=== PATIENT | male | born 1950 | race Caucasian/White ===

== ENCOUNTER → 2018-02-16 | Outpatient (CLI) | payer MEDICARE ==
[~2018-02-16] MED LIST: IOHEXOL 180 MG/ML 10 ML VIAL. ONE; LIDOCAINE 2% PF 2ML VIAL. ONE; NAPR500T8 PO; ZOLP5TAB PO; methylPREDNISolone ACETATE 40 MG/ML VIAL. ONE; methylPREDNISolone ACETATE 80 MG/ML VIAL. ONE
--- NOTE | 2018-02-16 14:43 | PAIN ---
DATE OF SERVICE: 02/16/2018 CHIEF COMPLAINT: Low back and left lower extremity pain. HISTORY OF PRESENT ILLNESS: The patient is a 68-year-old male who presents with history of pain at low back and left leg, it is about the year 1999 on and off. He had some treatment around 2004, which helped significantly, but the pain is returning now over the past few months, increased in the low back, across the low back bilaterally into the posterior gluteus, posterior lateral thigh, lateral anterior thigh on the left side. The patient reports it is aching and dull, stinging, constant, radiating, changes during the day, worse with activity, standing, walking. The patient plays golf fairly often and it is becoming more noticeable when he has been on his feet longer with some weakness and fatigability in the left leg. The patient reports it does not awaken him from sleep at night, he feels better with sitting or lying down. It does not affect his bowel or bladder control, but does affect his ability to walk with the fatigue in the left leg. The patient reports he has been taking naproxen, which helps. He has had some physical therapy in the past, but nothing recently, no other modalities or therapies at this time. The patient did have MRI scan of the lumbar spine showing multilevel degenerative disk change, broad-based disk protrusion at L4-L5 extending from the left paracentral position through the left lateral recess resulting in left lateral recess stenosis and left foraminal stenosis. The patient rates his disability rate from 0-10, 10 being the worst, is a 3 with family home responsibilities, 2 with sexual behavior and life support activities, and 1 with self-care, 7 with recreation and social activity and occupational activities. Again, the patient reports no loss of motor function, but significant fatigability in the left lower extremity with activity, especially walking and standing. PAST MEDICAL HISTORY: Significant for arthritis, previous injury with a pneumothorax treated with chest tube and previous tonsillectomy. Otherwise, the patient has been in good health. CURRENT MEDICATIONS: Include [id number] naproxen as well as iron supplement, Ambien for sleep. ALLERGIES: The patient has no known drug allergies. FAMILY HISTORY: Significant for no major medical problems or conditions he is aware of. SOCIAL HISTORY: The patient does not smoke, does not drink alcohol more than 1 beer a week. He is not using any illegal, illicit or recreational drugs. He is and lives with his spouse. Reports he is currently retired and lives locally in [place], [place]. REVIEW OF SYSTEMS: Positive for those items mentioned in history of present illness. All systems reviewed and otherwise negative. It is complete, full and well documented on the patient's chart. PHYSICAL EXAMINATION: VITAL SIGNS: The patient's blood pressure is 190/89, pulse is 69, respirations 18, temperature is 97.9 degrees Fahrenheit. Height is 6 feet, weight is 209 pounds. GENERAL: The patient is awake, alert, oriented, appropriate, very pleasant demeanor. HEENT: Head shows normocephalic, atraumatic. The patient wears eyeglasses. Extraocular movements intact and symmetrical. Oral cavity: Mucous membranes are moist and pink. Dentition is intact. NECK: Shows anterior throat supple without palpable lymphadenopathy noted. Swallow reflex is symmetrical. CHEST: Shows normal with inspection. Breath sounds clear to auscultation bilaterally. HEART: Shows S1, S2 clear. No murmurs auscultated. ABDOMEN: Soft, nontender, nondistended. No palpable organomegaly is noted. No rebound or guarding demonstrated. BACK: Shows spine grossly in the midline. Normal appearing thoracic kyphosis and lumbar lordotic curvature. Lumbar paraspinous musculature shows symmetrical on inspection; on palpation shows some mild tenderness throughout the upper, middle, lower distribution of paraspinous muscles but only diffusely and is symmetrical without evidence of atrophy, hypertrophy without trigger points. No tenderness over the spinous processes, sacrum or sacroiliac regions. The patient has good rotational motion of lumbar spine, both laterally as well as extension and flexion without difficulty or pain reported. EXTREMITIES: The patient's lower extremities show deep tendon reflexes at 2+ in the patella, 1+ tendo calcaneus tendons. Motor exam is strong with 5/5 dorsiflexion, extension, quadriceps and hamstring flexion equal. Peripheral pulses are 1+ posterior tibia. No peripheral edema is noted. No clubbing or cyanosis. Lower extremities are warm and dry to touch, equal in color and appearance. Straight leg raise noted to be negative bilaterally as is Gaenslen's and Suraj's maneuvers bilaterally. The patient is able to stand, stand on his toes without difficulty or loss of balance, walks with a normal appearing gait, does not appear to favor the right or left lower extremity, not using any assistive devices to ambulate. SKIN: Shows warm and dry, good turgor. No edema. No sores, rashes, bruising noted. IMPRESSION: 1. This is a 68-year-old male with approximate 5-month history of increasing pain in low back and left lower extremity in radicular fashion. 2. MRI scan of lumbar spine as noted. 3. Arthritis. PLAN: Options were discussed with the patient including conservative medical management, physical therapies and interventional techniques. He would like to pursue interventional techniques. We discussed a lumbar epidural steroid injection using description as well as anatomical models to describe the procedure. Risks were then discussed including, but not limited to bleeding, infection, possibility of epidural hematoma, subsequent neurologic compromise, dural puncture headache, spinal cord and/or nerve damage, side effects of steroid medication and poor results regarding pain control. The patient understands and wished to proceed. The patient will return to clinic in approximately 2 weeks for followup. He was counseled to return appointment, activity level and side effects to be aware of. DIAGNOSIS: Lumbar radiculopathy with lumbar degenerative disk disease and lumbar herniated disk. PROCEDURES: Lumbar epidural steroid injection, translaminar approach at L4-L5 level using C-arm fluoroscopic guidance under sterile prep and drape using local anesthetic. MEDICATION INJECTED: A total of 120 mg Depo-Medrol plus 10 mL of preservative-free normal saline and 2 mL of Isovue for contrast. CONDITION AT DISCHARGE: Stable. The patient tolerated procedure well, had no complications. SIMON MAY MD DR: CARITO/mulu JOB#: [id number] / [id number] EDER May MD
== END | disposition home or self-care (01) ==
LOC: PNCL 07:47
PROVIDERS: ATTEND Anesthesiology
DX: M51.16 Intervertebral disc disorders with radiculopathy, lumbar region (principal); M19.90 Unspecified osteoarthritis, unspecified site; Z98.890 Other specified postprocedural states; Z79.899 Other long term (current) drug therapy
CPT/HCPCS: 62323; J1030; J1040; J2001; Q9965

== ENCOUNTER → 2018-03-02 | Outpatient (CLI) | payer MEDICARE ==
--- NOTE | 2018-03-02 11:19 | PAIN ---
DATE OF SERVICE: 03/02/2018 DIAGNOSES: Lumbar radiculopathy with lumbar degenerative disk disease and lumbar herniated disk. The patient is a 68-year-old male who returns for followup status post lumbar epidural steroid injection x 1. The patient reports about 80-90% improvement in his left leg and low back, but still some pain in the low back on the right side. The patient reports it is a 3 on a scale of 10 at its worst, 2 on average, 2 at its least, and is a 2 today. The patient reports it as aching and sharp, radiating to the lower extremities, mostly on the left side, but more noticeable on the right side in the low back. The patient reports he has been increasing his activities, distance walking, doing household activities, playing golf, also sleeping better. It does not awaken him from sleep any longer. The patient reports no new motor or sensory deficits, no new bowel or bladder incontinence or other complaints. PHYSICAL EXAMINATION: VITAL SIGNS: Blood pressure 130/80, pulse 64, respirations 16, temperature 97.8 degrees Fahrenheit, weight is 209 pounds. GENERAL: The patient is alert, oriented, appropriate, very pleasant demeanor. HEENT: Head shows normocephalic, atraumatic. Extraocular movements are intact and symmetrical. Oral cavity: Mucous membranes are moist and pink. Dentition is intact. NECK: Shows anterior throat supple without palpable lymphadenopathy noted. Swallow reflex symmetrical. CHEST: Shows normal on inspection. Breath sounds are clear to auscultation bilaterally. HEART: S1, S2 clear. No murmurs auscultated. ABDOMEN: Soft, nontender, nondistended. No palpable organomegaly is noted. No rebound or guarding demonstrated. BACK: Shows spine grossly in the midline, normal appearing thoracic kyphosis and lumbar lordotic curvatures. Lumbar paraspinal musculature shows symmetrical on inspection, on palpation shows some mild tenderness only diffusely in the low lumbar distribution without radiation. The patient has good rotational motion both laterally as well as extension and flexion without difficulty. EXTREMITIES: Lower extremities show deep tendon reflexes at 2+ in the patellar, 1+ in tendo-calcaneus tendons are equal. Motor exam is strong with 5/5 dorsiflexion and extension, quadriceps and hamstring flexion are symmetrical. Peripheral pulses are 1+ posterior tibial. No peripheral edema is noted bilaterally. Options were discussed with the patient. The patient's old chart was reviewed as his current medication regimen updated. Current review of systems is updated today as well. We will proceed with a second lumbar epidural steroid injection with fluoroscopic guidance. Risks were again discussed including, but not limited to bleeding, infection, possibility of epidural hematoma and subsequent neurological compromise, dural puncture headache, spinal cord and/or nerve damage, side effects of steroid medication, and poor results regarding pain control. The patient understands and wished to proceed. The patient will return to clinic in approximately 2 weeks for follow up. He was counseled as to return appointment, activity level and side effects to be aware of. DIAGNOSES: Lumbar radiculopathy with lumbar degenerative disk disease, and lumbar herniated disk. PROCEDURE: Lumbar epidural steroid injection, translaminar approach, at L4-L5 level using C-arm fluoroscopic guidance under sterile prep and drape using local anesthetic. MEDICATION INJECTED: A total of 120 mg Depo-Medrol plus 10 mL of preservative-free normal saline and 2 mL of Isovue for contrast. CONDITION AT DISCHARGE: Stable. The patient tolerated the procedure well and had no complications. SIMON MAY MD DR: CARITO/mulu JOB#: [id number] / [id number]
== END | disposition home or self-care (01) ==
LOC: PNCL 07:53
PROVIDERS: ATTEND Anesthesiology
DX: M51.16 Intervertebral disc disorders with radiculopathy, lumbar region (principal)
CPT/HCPCS: 62323; J1030; J1040; J2001; Q9965

== ENCOUNTER → 2018-03-23 | Outpatient (CLI) | payer MEDICARE ==
[~2018-03-23] MED LIST changes: +LIDOCAINE 1% PF 2 ML VIAL. ONE; -LIDOCAINE 2% PF 2ML VIAL. ONE
--- NOTE | 2018-03-23 19:00 | PAIN ---
DATE OF SERVICE: 03/23/2018 PROGRESS NOTE FOR PAIN CLINIC DIAGNOSES: Lumbar radiculopathy with lumbar degenerative disk disease and lumbar herniated disk. HISTORY OF PRESENT ILLNESS: The patient is a 68-year-old male who returns for followup status post lumbar epidural steroid injection x 2. The patient reports initially about 89% improvement, but after the second injection, was not a significant improvement above that. The patient reports the pain is still in the low back and more on the right side than the left at this time. Aching, radiating and shooting into the lower extremities. The patient reports lower extremity pain both in the left leg and the right leg, but is more noticeable now on the right side. The patient reports pain is a 6 on a scale of 10 at its worst, 4 on average, 2 at its least and is a 4 today. The patient reports it is aching and constant, becoming more radiating, worse with walking, standing, changing positions. The patient played golf yesterday, which seemed to exacerbate the pain across the back. The patient reports his back is sore from that, better with sitting or lying down. It does not awaken him from sleep at night. The patient reports no new motor or sensory deficits, no new bowel or bladder incontinence or other complaints. PHYSICAL EXAMINATION: VITAL SIGNS: The patient's blood pressure is 117/77, pulse 67, respirations 18, temperature 97.8 degrees Fahrenheit. Height 6 feet, weight is 209 pounds. GENERAL: The patient is awake, alert, oriented, appropriate, very pleasant demeanor. HEENT: Head is normocephalic, atraumatic. Extraocular muscles are intact and symmetrical. Oral cavity: Mucous membranes moist and pink. Dentition is intact. NECK: Shows anterior throat supple without palpable lymphadenopathy noted. Swallow reflex symmetrical. CHEST: Shows normal on inspection. Breath sounds clear to auscultation bilaterally. HEART: Shows S1, S2 clear. No murmurs auscultated. ABDOMEN: Soft, nontender, nondistended. No palpable organomegaly is noted. No rebound or guarding demonstrated. BACK: Shows spine grossly in the midline. Normal appearing thoracic kyphosis and lumbar lordotic curvature. Lumbar paraspinous muscle shows symmetrical on inspection, on palpation shows some mild tenderness to moderate tenderness in the middle and lower distribution of paraspinous musculature bilaterally, somewhat more on the right than the left at this time. No difficulty with rotational motion was performed greater than 10 degrees right and left as well as extension greater than 10 degrees, forward flexion 45 degrees without difficulty. EXTREMITIES: The patient's lower extremities show deep tendon reflexes 2+ in the patellar, 1+ tendo calcaneus tendons are equal. Motor exam is strong with 5/5 dorsiflexion, extension, quadriceps and hamstring flexion. Peripheral pulses are 1+ posterior tibia. No peripheral edema is noted. Options were discussed with the patient. The patient's old chart was reviewed, as his current medication regimen updated. Current review of systems updated today as well. We will proceed with a third in the series of lumbar epidural steroid injection today with fluoroscopic guidance. Risks were again discussed including, but not limited to bleeding, infection, possibility of epidural hematoma, subsequent neurological compromise, dural puncture headache, spinal cord and/or nerve damage, side effects of steroid medication and poor results regarding pain control. The patient understands and wished to proceed. The patient to return to clinic in approximately 2 weeks for followup, was counseled on return appointment, activity level and side effects to be aware of. DIAGNOSES: Lumbar radiculopathy with lumbar degenerative disk disease and lumbar herniated disk. PROCEDURE: Lumbar epidural steroid injection, translaminar approach at L4-L5 level using C-arm fluoroscopic guidance under sterile prep and drape using local anesthetic. MEDICATION INJECTED: A total of 120 mg Depo-Medrol plus 10 mL of preservative-free normal saline and 2 mL of Isovue for contrast. CONDITION AT DISCHARGE: Stable. The patient tolerated the procedure well, had no complications. SIMON MYA MD DR: CARITO/mulu JOB#: [id number] / [id number]
== END | disposition home or self-care (01) ==
LOC: PNCL 07:58
PROVIDERS: ATTEND Anesthesiology
DX: M51.16 Intervertebral disc disorders with radiculopathy, lumbar region (principal)
CPT/HCPCS: 62323; J1030; J1040; Q9965

== ENCOUNTER → 2019-01-17 | Outpatient (CLI) | payer MEDICARE ==
[~2019-01-17] MED LIST changes: -LIDOCAINE 1% PF 2 ML VIAL. ONE; +MELA3TAB2 PO
--- NOTE | 2019-01-18 00:38 | PAIN ---
DATE OF SERVICE: 01/17/2019 PROGRESS NOTE FOR PAIN CLINIC DIAGNOSES: Lumbar radiculopathy with lumbar degenerative disk disease and lumbar herniated disk. HISTORY OF PRESENT ILLNESS: The patient is a 68-year-old male who returns for followup status post lumbar epidural steroid injection x 1. The patient reports about 40% improvement since last injection, which he is continuing. The pain in the back is now essentially relieved, but he still has pain in the right hip, lateral anterior thigh. The patient reports it is aching, sharp, and shooting at times, radiating with walking and standing, worse with changing positions, better with sitting or lying down, does not awaken him from sleep at night. The patient reports he is increasing his activity with greater distance walking and doing recreational activities with greater ease and comfort. The patient reports no new motor or sensory deficits, no new bowel or bladder incontinence or other complaints. Rates his pain as 6 on a scale of 10 at its worst over the past week, 5 on average, 2 at its least, and is a 2 today. PHYSICAL EXAMINATION: VITAL SIGNS: The patient's blood pressure is 130/77, pulse 77, respirations 18, temperature 97.5 degrees Fahrenheit, and weight 205 pounds. GENERAL: The patient is awake, alert, oriented, appropriate, and very pleasant demeanor. HEENT: Shows normocephalic, atraumatic. Extraocular movements are intact and symmetrical. Oral cavity: Mucous membranes moist and pink. Dentition is intact. NECK: Shows anterior throat supple without palpable lymphadenopathy noted. Swallow reflex is symmetrical. CHEST: Shows normal on inspection. Breath sounds are clear to auscultation bilaterally. HEART: Shows S1, S2 clear. No murmurs auscultated. ABDOMEN: Soft, nontender, and nondistended. No palpable organomegaly is noted. No rebound or guarding demonstrated. BACK: Shows spine grossly in the midline. Normal appearing thoracic kyphosis and lumbar lordotic curvature. Lumbar paraspinous muscle shows symmetrical on inspection, with palpation shows some moderate tenderness diffusely, but only diffusely bilaterally without radiation. The patient has good rotational motion of lumbar spine, both laterally as well as extension and flexion without significant difficulty. EXTREMITIES: The patient's lower extremities show deep tendon reflexes 2+ in the patellar, 1+ tendo-calcaneus tendons. Motor exam is strong with 5/5 dorsiflexion, extension, quadriceps and hamstring flexion equal. Peripheral pulses are 1+ posterior tibial. No peripheral edema is noted. Options were discussed with the patient. The patient's old chart was reviewed as his current medication regimen updated. Current review of systems updated today as well. We will proceed with a second in the series of lumbar epidural steroid injection today with fluoroscopic guidance. Risks were again discussed including, but not limited to bleeding, infection, possibility of epidural hematoma and subsequent neurologic compromise, dural puncture, headaches, spinal cord and/or nerve damage, side effects of steroid medication and poor results regarding pain control. The patient understands and wished to proceed. The patient will return to the clinic in approximately 2 weeks for followup. He was counseled as to return appointment, activity level, and side effects to be aware of. DIAGNOSES: Lumbar radiculopathy with lumbar degenerative disk disease and lumbar herniated disk. PROCEDURE: Lumbar epidural steroid injection, translaminar approach at L4-L5 level using C-arm fluoroscopic guidance under sterile prep and drape using local anesthetic. MEDICATION INJECTED: A total of 120 mg Depo-Medrol plus 10 mL of preservative-free normal saline and 2 mL of contrast. CONDITION AT DISCHARGE: Stable. The patient tolerated the procedure well, had no complications. SIMON MAY MD DR: CARITO/mulu JOB#: [id number] / [id number]
== END ==
LOC: PNCL 13:56
PROVIDERS: ATTEND Anesthesiology
DX: M51.16 Intervertebral disc disorders with radiculopathy, lumbar region (principal)
CPT/HCPCS: 62323; J1030; J1040; Q9965

== ENCOUNTER → 2019-02-21 | Outpatient (CLI) | payer MEDICARE ==
[~2019-02-21] MED LIST changes: +BUPIVACAINE MPF 0.25% 10 ML VIAL. ONE; -MELA3TAB2 PO; +MELA3TAB56 PO; -methylPREDNISolone ACETATE 80 MG/ML VIAL. ONE
--- NOTE | 2019-02-22 01:42 | PAIN ---
DATE OF SERVICE: 02/21/2019 PROGRESS NOTE FOR PAIN CLINIC DIAGNOSES: 1. Lumbar radiculopathy with lumbar degenerative disk disease and lumbar herniated disk. 2. Myofascial pain. HISTORY OF PRESENT ILLNESS: This is a 69-year-old male who returns for followup status post lumbar epidural steroid injection x 2. The patient reports his first injection gave about 40% improvement. The last one had no real significant improvement and his pain is mainly just in the right side now on the right posterior gluteus and lateral hip and thigh. The patient reports it is worse with activity, standing, walking, changing positions, worse with abducting his leg to the right away from midline. The patient reports it is aching, sharp, dull, shooting, radiating, rates it as a 8 on a scale of 10 at its worst in the past week, 6 on average and a 3 this week and is a 6 today. The patient reports no loss of motor function, no new bowel or bladder incontinence or other complaints, worse with activity. It does not awaken him from sleep at night, better with sitting or lying down. PHYSICAL EXAMINATION: VITAL SIGNS: The patient's blood pressure is 145/84, pulse 66, respirations 18, temperature 98.1 degrees Fahrenheit, weight is 204 pounds. GENERAL: The patient is awake, alert, oriented, appropriate, very pleasant demeanor. HEENT: Head shows normocephalic, atraumatic. Extraocular movements are intact and symmetrical. Oral cavity: Mucous membranes moist and pink. Dentition is intact. NECK: Shows anterior throat supple without palpable lymphadenopathy noted. Swallow reflex symmetrical. CHEST: Shows normal on inspection. Breath sounds clear to auscultation bilaterally. HEART: Shows S1, S2 clear. No murmurs auscultated. ABDOMEN: Soft, nontender, nondistended. BACK: Shows spine grossly in the midline. Normal appearing thoracic kyphosis and lumbar lordotic curvature. Lumbar paraspinous muscle shows symmetrical on inspection with palpation with some moderate tenderness diffusely bilaterally, but only diffusely without radiation. The patient has good rotational motion of lumbar spine, both laterally as well as extension and flexion without significant difficulty. EXTREMITIES: The patient's lower extremities show deep tendon reflexes 2+ in the patellar, 1+ tendo-calcaneus tendons. Motor exam is strong with 5/5 dorsiflexion, extension, quadriceps and hamstring flexion bilaterally. The patient shows some significant tenderness over the superior lateral aspect of the right gluteus with deep palpation without specific radiation, but very firm rope-like musculature consistent with trigger point areas of musculature on the right side only. Left side is nontender without any findings of rope-like musculature or radiation. Options were discussed with the patient. The patient's old chart was reviewed as his current medication regimen updated. Current review of systems updated today as well. We will proceed with a trigger point injection of the right superior lateral gluteus. Risks were discussed including but not limited to bleeding, infection, possibility of intravascular injection sequelae, spread of local anesthetic and numbness, side effects of steroid medication, exposure to fluoroscopy and poor results regarding pain control. The patient understands and wished to proceed. The patient will return to clinic in approximately 2 weeks for followup. He was counseled on return appointment, activity level and side effects to be aware of. DIAGNOSIS: Myofascial pain. PROCEDURE: Trigger point injection to right superior lateral gluteus under sterile prep and drape using local anesthetic. MEDICATION INJECTED: A total of 4 mL of 0.25% bupivacaine and 40 mg total Depo-Medrol after negative aspiration. CONDITION AT DISCHARGE: Stable. The patient tolerated the procedure well and had no complications. SIMON MAY MD DR: CARITO/mulu JOB#: [id number] / [id number]
== END ==
LOC: PNCL 08:13
PROVIDERS: ATTEND Anesthesiology
DX: M79.18 Myalgia, other site (principal); M51.16 Intervertebral disc disorders with radiculopathy, lumbar region
CPT/HCPCS: 20552; 77002; J1030; J3490; Q9965

== ENCOUNTER → 2019-03-27 | Outpatient (CLI) | payer MEDICARE ==
[~2019-03-27] MED LIST changes: -BUPIVACAINE MPF 0.25% 10 ML VIAL. ONE; +methylPREDNISolone ACETATE 80 MG/ML VIAL. ONE
--- NOTE | 2019-03-27 18:54 | PAIN ---
DATE OF SERVICE: 03/27/2019 PROGRESS NOTE FOR PAIN CLINIC DIAGNOSES: Lumbar radiculopathy with lumbar degenerative disk disease and lumbar herniated disk. HISTORY OF PRESENT ILLNESS: The patient is a 69-year-old male who returns for followup status post lumbar epidural steroid injection x 2. The patient reports he did well initially, but the pain is returning now, about 40% improvement. We tried triggerpoint injection on him last time in the right gluteus, which was not significantly effective as well. The patient reports still some pain has been radiating further down the leg now on the right side, posterior gluteus, lateral thigh, posterior and anterior thigh, anterior medial thigh with extended standing is most noticeable. The patient reports when he is standing for prolonged periods, the pain is much worse in the back and the right leg, better with playing golf. He has no difficulty with twisting the low back, spine extension and flexion without significant increase in pain. The patient reports it is aching and shooting in the low back and right leg, stabbing, radiating rated as a 9 on a scale of 10 at its worst, 7 on average, 5 at its least and is a 5 today. The patient reports no new motor or sensory deficits, no new bowel or bladder incontinence or other complaints. PHYSICAL EXAMINATION: VITAL SIGNS: The patient's blood pressure 134/81, pulse 76, respirations 16, temperature 97.8 degrees Fahrenheit, weight is 206 pounds. GENERAL: The patient is awake, alert, oriented, appropriate, very pleasant demeanor. HEENT: Shows normocephalic, atraumatic. Extraocular movements are intact and symmetrical. Oral cavity, mucous membranes are moist and pink. Dentition is intact. NECK: Shows anterior throat supple without palpable lymphadenopathy noted. Swallow reflex symmetrical. CHEST: Shows normal on inspection. Breath sounds clear to auscultation bilaterally. HEART: Shows S1, S2 clear. No murmurs auscultated. ABDOMEN: Soft, nontender, nondistended. No palpable organomegaly is noted. No rebound or guarding demonstrated. BACK: Shows spine grossly in the midline. Normal appearing thoracic kyphosis, some minor flattening of lumbar lordotic curvature. Lumbar paraspinous muscle shows symmetrical on inspection, with palpation shows some czuk-to-uqfnvwbe tenderness in the low lumbar distribution only, more on the right than the left, but symmetrical without evidence of atrophy, hypertrophy, no trigger points, no radiation. The patient has good rotational motion of lumbar spine without difficulty, both laterally greater than 10 degrees right and left as well as extension greater than 10 degrees, forward flexion 45 degrees without increased pain in any rotation. EXTREMITIES: Lower extremities show deep tendon reflexes 2+ in the patellar, 1+ tendo-calcaneus tendons. Motor exam is strong with 5/5 dorsiflexion, extension, quadriceps and hamstring flexion symmetrical. Peripheral pulses are 1+ posterior tibia. No peripheral edema is noted. Options were discussed with the patient. The patient's old chart was reviewed as his current medication regimen updated. Current review of systems updated today as well. We will proceed with a third in a series of lumbar epidural steroid injection today with fluoroscopic guidance. Risks were again discussed including, but not limited to bleeding, infection, possibility of epidural hematoma, subsequent neurological compromise, dural puncture, headaches, spinal cord and/or nerve damage, side effects of steroid medication and poor results regarding pain control. The patient understands and wished to proceed. The patient will return to clinic in approximately 2 weeks for followup. He was counseled on return appointment, activity level and side effects to be aware of. DIAGNOSIS: Lumbar radiculopathy with lumbar degenerative disk disease with lumbar herniated disk. PROCEDURE: Lumbar epidural steroid injection, translaminar approach L4-L5 level using C-arm fluoroscopic guidance under sterile prep and drape using local anesthetic. MEDICATION INJECTED: A total of 120 mg Depo-Medrol plus 10 mL of preservative-free normal saline and 2 mL of contrast. CONDITION AT DISCHARGE: Stable. The patient tolerated the procedure well, had no complications. SIMON MAY MD DR: CARITO/mulu JOB#: [id number] / [id number]
== END ==
LOC: PNCL 14:37
PROVIDERS: ATTEND Anesthesiology
DX: M51.16 Intervertebral disc disorders with radiculopathy, lumbar region (principal)
CPT/HCPCS: 62323; J1030; J1040; Q9965

== ENCOUNTER → 2019-04-03 | Outpatient (CLI) | payer MEDICARE ==
[~2019-04-03] MED LIST changes: -IOHEXOL 180 MG/ML 10 ML VIAL. ONE; -methylPREDNISolone ACETATE 40 MG/ML VIAL. ONE; -methylPREDNISolone ACETATE 80 MG/ML VIAL. ONE
--- NOTE | 2019-04-03 16:37 | RAD ---
MRI Lumbar Spine without contrast History: Right radiculopathy Technique: Multiplanar, multi sequential noncontrast MR imaging was performed of the lumbar spine. Comparison: March 22, 2006 Findings: Lumbar vertebral body stature is mostly maintained other than multilevel Schmorl's nodes. There is minimal posterior subluxation of L5 relative S1, negligible anterior spondylolisthesis at L4-5, and very mild grade 1 anterior spondylolisthesis at L2-3. Conus terminates at T12-L1. There is no significant marrow edema. There is again fairly advanced L5-S1 degenerative disc disease, [id number] degenerative disc disease at L2-3, to a lesser degree L3-4 and L4-5. L1-L2: There is negligible disc osteophyte complex. There is minimal buckling of the ligamentum flavum. Spinal canal and neural foramina are adequate. L2-L3: There is mild buckling of the ligamentum flavum and facet degenerative change, minimal fluid in the facet articulations greater on the right. Neural foramina are adequate. Spinal canal is overall adequate. L3-L4: There is mild buckling of the ligamentum flavum and facet degenerative change. Spinal canal and neural foramina are adequate. There is very mild narrowing of the far right lateral recess from posteriorly. L4-L5: There is mild prominence of posterior epidural fat centrally. There is mild to moderate buckling of the ligamentum flavum and mild facet degenerative change. There is some fluid in the facet articulations bilaterally. There is minimal disc osteophyte complex, somewhat more eccentric to the inferior right neural foramen with associated small superimposed protrusion. There is [id number]-sc-[id number] narrowing of the far lateral recesses bilaterally. There is also mild narrowing of the central canal mostly from posterior epidural lipomatosis. There is mild narrowing of the inferior right neural foramen in part by shallow protrusion, left neural foramen overall adequate. L5-S1: There is minimal disc osteophyte complex and bulge superimposed on the posteriorly subluxed L5 vertebral body margin. There is mild narrowing of the far left lateral recess. There is mild narrowing of the left neural foramen, right neural foramen adequate. Impression: 1. There is dqcs-pq-fxwvranl narrowing of the far lateral recesses bilaterally at L4-5, mild left lateral recess stenosis L5-S1 as described. 2. There is multilevel mild abnormal alignment as stated, multilevel facet degenerative change. 3. There is multilevel degenerative disc disease greatest at L5-S1. 4. There is mild narrowing of the right L4-5 and left L5-S1 neural foramina. Electronically signed by: Massimo Baez MD (04/03/2019 4:34 PM) [email or web address]
== END ==
LOC: MRI 14:14
PROVIDERS: ATTEND Anesthesiology
DX: M51.16 Intervertebral disc disorders with radiculopathy, lumbar region (principal)
CPT/HCPCS: 72148

== ENCOUNTER → 2019-05-16 | Outpatient (CLI) | payer MEDICARE ==
[~2019-05-16] MED LIST changes: +BUPIVACAINE MPF 0.25% 10 ML VIAL. ONE; +IOHEXOL 180 MG/ML 10 ML VIAL. ONE; +methylPREDNISolone ACETATE 40 MG/ML VIAL. ONE
--- NOTE | 2019-05-17 03:39 | PAIN ---
DATE OF SERVICE: 05/16/2019 PROGRESS NOTE FOR PAIN CLINIC DIAGNOSES: 1. Lumbar radiculopathy with lumbar degenerative disk disease and lumbar herniated disk. 2. Myofascial pain. HISTORY OF PRESENT ILLNESS: The patient is a 69-year-old male who returns for followup status post lumbar epidural steroid injections x 3, most recently on 03/27/2019. The patient did very well, reports his back is doing quite a bit better, about 80% improvement. He has some pain in the right lateral and posterior hip, which has been keeping him from sleeping at night and difficulty with activity. The patient remains very active. He is referring basketball games frequently on the weekends as well as still playing golf and also playing pickleball with a fairly good ease and comfort, but the pain in the hip is beginning to become more noticeable. The patient reports he has been very active, increasing distance walking, doing work activities, household activities, referring activities again golf and pickleball with good tolerance, but the pain is more noticeable with the referring activities. The patient reports he has difficulty trying to run. He has not been doing this lately because of the pain. No new motor or sensory deficits; however, no new bowel or bladder incontinence. The patient reports the pain is a 9 on a scale of 10 at its worst over the past week, 6 on average, 3 at its least and is a 3 today, pressure, aching, sharp, dull, burning, stabbing, radiating, becoming severe in the right hip, again worse with activity. PHYSICAL EXAMINATION: VITAL SIGNS: The patient's blood pressure 126/73, pulse 77, respirations 18, temperature 98.3 degrees Fahrenheit, height 6 feet, weight is 206 pounds. GENERAL: The patient is awake, alert, oriented, appropriate, very pleasant demeanor. HEENT: Shows normocephalic, atraumatic. Extraocular movements are intact and symmetrical. Oral cavity: Mucous membranes moist and pink. Dentition is intact. NECK: Shows anterior throat supple without palpable lymphadenopathy noted. Swallow reflex symmetrical. CHEST: Shows normal on inspection. Breath sounds are clear bilaterally. HEART: Shows S1, S2 clear. No murmurs auscultated. ABDOMEN: Soft, nontender, nondistended. BACK: Shows spine grossly in the midline. Normal appearing thoracic kyphosis and lumbar lordotic curvature. Lumbar paraspinous muscle shows symmetrical on inspection, some very mild tenderness in the right distribution in the low lumbar paraspinous musculature that is without radiation. The patient has good rotational motion of lumbar spine, both laterally as well as extension and flexion without significant difficulty. The patient's right posterior gluteus and lateral gluteus shows some significant tenderness and very firm rope-like musculature on the superior lateral aspect of the gluteus, which is very tender with palpation without specific radiation. The patient has good rotational motion of the hip as well as abduction and adduction more noticeable with abduction on the right side with pain just above the trochanter and into the superior lateral gluteus as well. Left side is nontender. EXTREMITIES: Lower extremities show deep tendon reflexes 2+ in the patellar and tendo calcaneus tendons are 1+. Motor exam is strong with 5/5 dorsiflexion, extension and symmetrical. Peripheral pulses are 1+. No peripheral edema is noted. Options were discussed with the patient. The patient's old chart was reviewed as his current medication regimen updated. Current review of systems updated today as well. We will proceed with a trigger point injection of the right superolateral gluteus as identified. Risks were discussed including but not limited to bleeding, infection, possibility of intravascular injection sequelae, spread of local anesthetic and numbness, side effects of steroid medication, exposure to fluoroscopy and poor results regarding pain control. The patient understands and wished to proceed. The patient will return to clinic in approximately 2 weeks for followup. She was counseled on return appointment, activity level, and side effects to be aware of. DIAGNOSIS: Myofascial pain. PROCEDURE: Trigger point injection, right superolateral gluteus under sterile prep and drape using local anesthetic. MEDICATION INJECTED: A total of 5 mL of 0.25% bupivacaine and 40 mg total Depo-Medrol and 1 mL of contrast. CONDITION AT DISCHARGE: Stable. The patient tolerated the procedure well, had no complications. SIMON MYA MD DR: CARITO/mulu JOB#: [id number] / [id number]
== END | disposition home or self-care (01) ==
LOC: PNCL 11:49
PROVIDERS: ATTEND Anesthesiology
DX: M79.18 Myalgia, other site (principal); M51.16 Intervertebral disc disorders with radiculopathy, lumbar region; Z98.890 Other specified postprocedural states
CPT/HCPCS: 20552; 77002; J1030; J3490; Q9965

== ENCOUNTER → 2019-06-06 | Outpatient (CLI) | payer MEDICARE ==
[~2019-06-06] MED LIST changes: -BUPIVACAINE MPF 0.25% 10 ML VIAL. ONE; -IOHEXOL 180 MG/ML 10 ML VIAL. ONE; -methylPREDNISolone ACETATE 40 MG/ML VIAL. ONE
--- NOTE | 2019-06-06 12:29 | PAIN ---
DATE OF SERVICE: 06/06/2019 PROGRESS NOTE FOR PAIN CLINIC DIAGNOSES: Lumbar radiculopathy with lumbar degenerative disk disease and lumbar herniated disk. HISTORY OF PRESENT ILLNESS: The patient is a 69-year-old male who returns for followup status post lumbar epidural steroid injections x 3 since December of this year. Also, trigger point injection on his last visit and also in February. The patient reports the pain is actually worse in the right hip radiating in the right side lateral aspect of the thigh and superior aspect of the gluteus as well as some pain in the back, but the pain in the back is very minimal. The patient reports that his leg, mostly in the posterior gluteus, posterior lateral thigh, anterior thigh and occasionally with aching, sharp, dull pain, burning, radiating, becoming more constant and severe with walking, standing, especially with trying to exercise or run. The patient reports the pain is a 10 on a scale of 10 at its worst over the past week, 7 on average, 3 at its least and is a 7 today. The patient reports it awakens him from sleep about every 6 hours, worse with walking, trying to do household activities as well as work activities. 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 The patient reports no new motor or sensory deficits, no new bowel or bladder incontinence. PHYSICAL EXAMINATION: VITAL SIGNS: The patient's blood pressure 120/78, pulse 72, respirations 18, temperature 97.8 degrees Fahrenheit, height 6 feet, weight is 207 pounds. GENERAL: The patient is awake, alert, oriented, appropriate, very pleasant demeanor. HEENT: Head shows normocephalic, atraumatic. Extraocular movements are intact and symmetrical. Oral cavity: Mucous membranes moist and pink. Dentition is intact. NECK: Shows anterior throat is supple without palpable lymphadenopathy noted. Swallow reflex symmetrical. CHEST: Shows normal on inspection. Breath sounds clear to auscultation bilaterally. HEART: Shows S1, S2 clear. No murmurs auscultated. ABDOMEN: Soft, nontender, nondistended. No palpable organomegaly is noted. No rebound or guarding demonstrated. BACK: Shows spine grossly in the midline. Normal-appearing thoracic kyphosis and lumbar lordotic curvature. The patient's lumbar paraspinous muscle shows symmetrical on inspection, on palpation shows some moderate tenderness diffusely, but only diffusely without significant radiation. EXTREMITIES: The patient's lower extremities show deep tendon reflexes at 2+ in the patellar, 1+ tendo-calcaneus tendons. Motor exam is strong with 5/5 dorsiflexion, extension, quadriceps and hamstring flexion and symmetrical and equal as well bilaterally. Peripheral pulses are 1+ posterior tibia. No peripheral edema is noted bilaterally. PLAN: Options were discussed with the patient. The patient's old chart was reviewed as his current medication regimen updated. Current review of systems updated today as well. We will proceed with holding injections at this time. We did discuss a potential right-sided L4-L5 transforaminal injection. The patient would like to try some alternative therapies currently. We recommended to different chiropractors for him to see if he is interested in some chiropractic treatment for the hip and leg. If not significantly improved, we did discuss potential lumbar transforaminal injection after that time. He will try the chiropractic route first. The patient was encouraged to maintain stretching and strengthening exercises on his own as well. Also, walking as tolerated and exercising as tolerated. The patient will follow up after chiropractic treatment and we will proceed at that time depending on his results. SIMON MAY MD DR: CARITO/mulu JOB#: [id number] / [id number]
== END | disposition home or self-care (01) ==
LOC: PNCL 07:30
PROVIDERS: ATTEND Anesthesiology
DX: M51.16 Intervertebral disc disorders with radiculopathy, lumbar region (principal)
CPT/HCPCS: G0463

== ENCOUNTER → 2019-06-13 | Outpatient (CLI) | payer MEDICARE ==
[~2019-06-13] MED LIST changes: +BUPIVACAINE MPF 0.25% 10 ML VIAL. ONE; +IOHEXOL 180 MG/ML 10 ML VIAL. ONE; +methylPREDNISolone ACETATE 80 MG/ML VIAL. ONE
--- NOTE | 2019-06-14 01:30 | PAIN ---
DATE OF SERVICE: 06/13/2019 PROGRESS NOTE FOR PAIN CLINIC DIAGNOSES: Lumbar radiculopathy with lumbar degenerative disk disease and lumbar herniated disk. HISTORY OF PRESENT ILLNESS: The patient is a 69-year-old male who returns for followup status post lumbar epidural steroid injections, trigger point injections, initially with good results with epidural steroid injections, but the trigger point injection did not help and the last lumbar epidural steroid injections have helped, but only by about 40% but initially it was about 80% to 90%. The patient returns today. We discussed a transforaminal injection on the right side at L4-L5 and L5-S1. He would like to proceed with that. The patient reports still significant pain in the right side, right posterior hip, posterior gluteus, lateral hip, lateral thigh, lateral anterior thigh, medial thigh on the right side into the medial knee and lower leg on occasion. The patient reports it is aching, sharp, shooting, stabbing, radiating, becoming more constant, more severe with activity, walking and standing. Reports he has had some good days, some bad days. Yesterday, he was hardly able to walk. Day before that, he felt pretty good. He has had some chiropractic treatment since his last visit in the interim and reports that this has helped, but only a minimal amount. The patient reports his pain is a 9 on a scale of 10 at its worst over the past week, 7 on average, 4 at its least and is a 7 today. The patient reports no new motor or sensory deficits, no new bowel or bladder incontinence or other complaints. PHYSICAL EXAMINATION: VITAL SIGNS: The patient's blood pressure is 126/80, pulse 79, respirations 18, temperature 98.3 degrees Fahrenheit, height 6 feet, weight is 207 pounds. GENERAL: The patient is awake, alert, oriented, appropriate, very pleasant demeanor. HEENT: Shows normocephalic, atraumatic. Extraocular movements are intact and symmetrical. Oral cavity shows mucous membranes moist and pink. NECK: Shows anterior throat supple without palpable lymphadenopathy noted. Swallow reflex symmetrical. CHEST: Shows normal on inspection. Breath sounds are clear bilaterally. HEART: Shows S1, S2 clear. ABDOMEN: Soft, nontender, nondistended. BACK: Shows spine grossly in the midline. Lumbar paraspinous muscle shows symmetrical on inspection, on palpation shows some moderate tenderness diffusely, but only diffusely without significant radiation with palpation and no asymmetry, no trigger points. The patient has good rotational motion of lumbar spine, both laterally as well as extension and flexion. No tenderness over the spinous processes, sacrum or sacroiliac regions. EXTREMITIES: Lower extremities show deep tendon reflexes 2+ in the patellar, 1+ tendo-calcaneus tendons. Motor exam is 5/5 with dorsiflexion, extension, quadriceps and hamstring flexion and symmetrical. Peripheral pulses are 1+ posterior tibial. No peripheral edema is noted bilaterally. Options were discussed with the patient. The patient's old chart was reviewed as his current medication regimen updated. Current review of systems updated today as well. We will proceed with right sided L4-L5 and L5-S1 level transforaminal injections with fluoroscopic guidance. Risks were again discussed including, but not limited to bleeding, infection, possibility of epidural hematoma, subsequent neurological compromise, dural puncture, headaches, spinal cord and/or nerve damage, side effects of steroid medication, potential injection of the vertebral artery at each level and permanent ischemic damage as well as poor results regarding pain control. The patient understands and wished to proceed. The patient will return to clinic in approximately 2 weeks for followup. He was counseled on return appointment, activity level and side effects to be aware of. DIAGNOSIS: Lumbar radiculopathy with lumbar degenerative disk disease and lumbar herniated disk. PROCEDURE: 2-level lumbar transforaminal injection at L4-L5 and L5-S1 on the right using C-arm fluoroscopic guidance under sterile prep and drape using local anesthetic. MEDICATION INJECTED: A total of 120 mg Depo-Medrol plus total of 3 mL of 0.25% bupivacaine after negative aspiration at each injection site and a total of 3 mL of contrast showed good contrast spread into the medial aspect of the epidural space and laterally along the nerve root at the L4-L5 level and the L5-S1 level showing no uptake with contrast on digital subtraction for each level. CONDITION AT DISCHARGE: Stable. The patient tolerated the procedure well, had no complications. SIMON MAY MD DR: CARITO/mulu JOB#: [id number] / [id number]
== END ==
LOC: PNCL 14:08
PROVIDERS: ATTEND Anesthesiology
DX: M51.16 Intervertebral disc disorders with radiculopathy, lumbar region (principal)
CPT/HCPCS: 64483; 64484; J1040; J3490; Q9965

== ENCOUNTER → 2020-03-26 | Outpatient (CLI) | payer MEDICARE ==
[~2020-03-26] MED LIST changes: -BUPIVACAINE MPF 0.25% 10 ML VIAL. ONE; -IOHEXOL 180 MG/ML 10 ML VIAL. ONE; +MELA3TAB4 PO; -MELA3TAB56 PO; -methylPREDNISolone ACETATE 80 MG/ML VIAL. ONE
--- NOTE | 2020-03-26 10:39 | PDOC ---
Progress Note - Pain Clinic Date of Service: DOS: DATE: 03/26/20 TIME: 10:36 Diagnosis: Dx: Lumbar radiculopathy with lumbar degenerative disc disease and lumbar herniated disc Myofascial pain History or Present Illness: HPI: 70-year-old male returns follow-up status post transforaminal injections lumbar L4-5 and L5-S1 on the right. Patient was last seen June 13, 2019 patient did very well with his reports about a 80 to 90% improvement for 6 to 7 months the pain is now returning in the low back and right lower extremity posterior gluteus posterior lateral thigh posterior calf lateral thigh anterior thigh medial thigh medial lower leg as well. Patient was worse with walking standing changing positions also activity and recreation patient plays golf very frequently and reports it does bother him on the right side of his hip and leg when he is golfing. Patient reports is better with sitting or laying down but is waking him from sleep again over the past month or so about once every 7-8 hours. Patient reports his pain is a 9 on scale 10 is worse of the past week 6 on average to its least is a 2 today patient scribes aching sharp dull shooting radiating becoming more severe with activity and weightbearing. Patient reports no new motor or sensory deficits no new bowel or bladder incontinence or other complaints. Physical Exam: VS: Blood pressure 151/97 pulse 78 respirations 18 temperature 90.4 F height is 6 foot weight is 210 pounds PE: PHYSICAL EXAMINATION: GENERAL: The patient is awake, alert, oriented, appropriate, very pleasant demeanor HEENT: Shows normocephalic, atraumatic. Extraocular movements are intact and symmetrical. Oral cavity: Mucous membranes moist and pink. NECK: Shows anterior throat supple without palpable lymphadenopathy noted. Swallow reflex symmetrical. CHEST: Shows normal on inspection. Breath sounds are clear bilaterally, no rales rhonchi or wheezes auscultated. HEART: Shows S1, S2 clear. No murmurs auscultated. ABDOMEN: Soft, nontender, nondistended. No palpable organomegaly is noted. No rebound or guarding demonstrated. BACK: Shows spine grossly in the midline. Normal-appearing cervical lordotic curvature. There is slightly increased thoracic kyphosis, some minor flattening of the lumbar lordotic curvature. Lumbar paraspinous muscles show symmetrical on inspection, on palpation shows some moderate tenderness diffusely throughout the upper, middle and lower distribution of the paraspinous muscles bilaterally and also into the lower thoracic paraspinous musculature, firm and tender, but without specific trigger points, without radiation of pain. The patient has g ood rotational motion of the lumbar spine, both laterally as well as extension and flexion without significant difficulty. No tenderness over the spinous processes, sacrum or sacroiliac regions. EXTREMITIES: Lower extremities show deep tendon reflexes 2+ in the patellar and tendo calcaneus tendons. Motor exam is 5 on a scale of 5 with right dorsiflexion, extension, quadriceps and hamstring flexion and 5/5 on the left. Peripheral pulses are 1+ posterior tibial. No peripheral edema is noted bilaterally. Lower extremities are warm and dry to touch, equal in color and appearance. Straight leg raise noted to be positive on the right about 35 degrees, left side is negative. Gaenslen's and Suraj's maneuvers are negative as well. The patient is able to stand, stand on his toes without difficulty or loss of balance walks with a normal-appearing gait does not use any assistive devices to ambulate. SKIN: Shows warm and dry, good turgor. No edema. No sores, rashes or bruising throughout. Procedure: Procedure: Options were discussed with the patient. Patient's old chart was reviewed his his current medication regimen updated current review of systems updated today as well. We will hold any further injections patient doing fairly well at this time and would like to check on his new insurance provider as far as any additional co-pays or charges that he may have if he does have any further interventional treatments. She was given a Medrol Dosepak with instructions side effects to be aware of was called into his local pharmacy. Patient return to clinic after Medrol Dosepak is completed and after his insurance has been verified as to [id number] costs for him. Medication Injected: Med Injected: None Condition at Discharge: Condition at Discharge: Condition at discharge is stable SIMON MAY MD Mar 26, 2020 10:39
== END ==
LOC: PNCL 09:40
PROVIDERS: ATTEND Anesthesiology
DX: M51.16 Intervertebral disc disorders with radiculopathy, lumbar region (principal); M79.18 Myalgia, other site; Z79.899 Other long term (current) drug therapy
CPT/HCPCS: G0463

== ENCOUNTER → 2020-06-28 | Outpatient (CLI) | payer MEDICARE ==
[2020-06-28 10:09] LABS: BASO % 1 % (0-3); EOS # 0.1 x10^3/uL (0.0-0.7); EOS % 2 % (0-3); HEMATOCRIT 51.3 % (39.0-53.0); HEMOGLOBIN 17.4 g/dL (13.0-17.5); LYMPH % 22 % (24-48); MEAN CORPUSCULAR HEMOGLOBIN 31 pg (25-35); MEAN CORPUSCULAR HGB CONC 34 g/dL (31-37); MEAN CORPUSCULAR VOLUME 91 fL (79-100); MONO # 0.6 x10^3/uL (0.0-1.1); MONO % 14 % (0-9); NEUT # 2.8 x10^3/uL (1.8-7.7); NEUT % 62 % (31-73); PLATELET COUNT 215 x10^3/uL (140-400); RED BLOOD COUNT 5.62 x10^6/uL (4.30-5.70); RED CELL DISTRIBUTION WIDTH 13.5 % (11.5-14.5); WHITE BLOOD COUNT 4.6 x10^3/uL (4.0-11.0)
== END ==
LOC: ONCLAB 09:22
PROVIDERS: ATTEND Internal Medicine Hematology & Oncology
DX: D45 Polycythemia vera (principal)
CPT/HCPCS: 36415; 81270; 82607; 82668; 82728; 82746; 83540; 83550; 85025

== ENCOUNTER → 2020-08-21 | Outpatient (CLI) | payer MEDICARE ==
--- NOTE | 2020-08-21 10:19 | KCIC ---
MR LUMBAR SPINE WO [id number] Date: 08/21/2020 8:45 AM Indication: RIGHT LUMBAR RADICULOPATHY. Chronic LBP, known stenosis. Worsening right hip pain. Comparison: 04/03/2019. Technique: Multi-planar multi-weighted magnetic resonance imaging of the lumbar spine was performed w ithout intravenous contrast using the standard lumbar spine protocol. FINDINGS: The lumbar spine is normally aligned. No acute fracture. Moderate multilevel degenerative disc desicc ation and disc height loss. No marrow replacing process to suggest malignancy. The conus terminates at a normal level. No abnormal signal is seen within the visualized distal spina l cord. No clumping of intrathecal nerve roots. No soft tissue abnormality in the visualized abdomen or pelvis. T12-L1: No disc bulge. No facet arthropathy. No significant spinal stenosis or neural foraminal narro wing. L1-L2: Disc bulge. Mild facet arthropathy. No significant spinal stenosis. Mild bilateral neural fora alfredo narrowing. L2-L3: Disc bulge. Moderate facet arthropathy. No significant spinal stenosis. Mild bilateral neural foraminal narrowing. L3-L4: Disc bulge. Moderate facet arthropathy. No significant spinal stenosis. Mild bilateral neural foraminal narrowing. L4-L5: Disc bulge with annular tear. Severe facet arthropathy. Ligamentum flavum thickening. Moderate spinal stenosis and lateral recess narrowing. Mild to moderate bilateral neural foraminal narrowing. L5-S1: Disc bulge with annular tear. Mild facet arthropathy. No spinal stenosis. Mild right and moder ate left lateral recess narrowing. Mild right and moderate left neural foraminal narrowing. IMPRESSION: Mild to moderate lumbar spondylosis, similar overall to the prior exam. Electronically signed by: Massimo Blakely MD (08/21/2020 10:17 AM) [id number]
== END ==
LOC: KCIC MRI 08:19
PROVIDERS: ATTEND Internal Medicine
DX: M47.27 Other spondylosis with radiculopathy, lumbosacral region (principal); M48.07 Spinal stenosis, lumbosacral region
CPT/HCPCS: 72148

== ENCOUNTER → 2020-09-16 | Outpatient (CLI) | payer MEDICARE ==
[2020-09-16 15:34] LABS: BASO # 0.1 x10^3/uL (0.0-0.2); BASO % 1 % (0-3); EOS # 0.1 x10^3/uL (0.0-0.7); EOS % 1 % (0-3); HEMATOCRIT 49.7 % (39.0-53.0); HEMOGLOBIN 17.1 g/dL (13.0-17.5); LYMPH # 1.3 x10^3/uL (1.0-4.8); LYMPH % 17 % (24-48); MEAN CORPUSCULAR HEMOGLOBIN 31 pg (25-35); MEAN CORPUSCULAR HGB CONC 34 g/dL (31-37); MEAN CORPUSCULAR VOLUME 90 fL (79-100); MONO # 0.9 x10^3/uL (0.0-1.1); MONO % 12 % (0-9); NEUT # 5.3 x10^3/uL (1.8-7.7); NEUT % 69 % (31-73); PLATELET COUNT 213 x10^3/uL (140-400); RED BLOOD COUNT 5.54 x10^6/uL (4.30-5.70); RED CELL DISTRIBUTION WIDTH 13.1 % (11.5-14.5); WHITE BLOOD COUNT 7.6 x10^3/uL (4.0-11.0)
== END ==
LOC: SURGPAT 13:30
PROVIDERS: ATTEND Neurological Surgery
DX: Z01.812 Encounter for preprocedural laboratory examination (principal); M48.07 Spinal stenosis, lumbosacral region; M54.17 Radiculopathy, lumbosacral region
CPT/HCPCS: 36415; 85025; 87641

== ENCOUNTER → 2020-09-23 | Outpatient (CLI) | payer MEDICARE ==
--- NOTE | 2020-09-24 09:08 | NUR ---
Notified Giovana @ Dr Salter's office regarding patient being covid positive. Notified patient of covid positive results. Also notified patient that Dr Salter's office would be in contact with him. So far patient is asymptomatic.
== END ==
LOC: LAB 09:37
PROVIDERS: ATTEND Neurological Surgery
DX: Z01.812 Encounter for preprocedural laboratory examination (principal); U07.1 COVID-19
CPT/HCPCS: U0003; U0005

== ENCOUNTER → 2020-11-11 | Outpatient (CLI) | payer MEDICARE ==
[~2020-11-11] MED LIST changes: +DOCU-153 PO; +HYDR-2761 PO; +METH-562 PO
--- NOTE | 2020-11-11 09:47 | PREOP HP ---
DATE OF SERVICE: 11/11/2020 HISTORY OF PRESENT ILLNESS: The patient is a pleasant 70-year-old who is having difficulty with low back pain and pain that radiates to his right hip. He has been carefully evaluated by Orthopedics and felt to have no problems with the hip. He says his back and hip pain occurs when he stands and walks. If he sits for a short time, there is some relief. Epidural steroid injections helped him in the past. A right hip injection was performed and was of no benefit. The problem has been present for years and has slowly worsened. He is taking Tylenol. A steroid pack/Medrol Dosepak did help him some. CURRENT MEDICATIONS: Ambien, Tylenol. PAST MEDICAL HISTORY: Kidney stones. FAMILY HISTORY: Alzheimer disease, diabetes. SOCIAL HISTORY: Retired, , nonsmoker. Drinks alcohol 1-2 times a week. REVIEW OF SYSTEMS: A 10-point review of systems was performed and is noncontributory except that mentioned above. PHYSICAL EXAMINATION: GENERAL: Alert, pleasant, and in no acute distress. HEENT: Head is normocephalic, atraumatic. SKIN: Warm and dry. MUSCULOSKELETAL: Lumbar paraspinal muscle bulk is normal, restricted range of motion of the lumbar spine, [id number] tenderness of the lower lumbar spine with palpation, normal range of motion of the lower extremities bilaterally. No pain with internal and external rotation of the hip. EXTREMITIES: No clubbing, cyanosis or edema. NEUROLOGIC: Alert and oriented x 3. Strength is 5/5 in the lower extremities, sensory was intact to light touch in the lower extremities. Reflexes were trace to 1+ and symmetric in the lower extremities bilaterally, negative straight leg raising bilaterally, normal gait. IMAGING DATA: I reviewed his lumbar MRI scan. On that study, I felt there was a moderate amount of central canal stenosis and severe right lateral recess stenosis at L4-L5. At L5-S1, there was significant canal narrowing and I did feel that the subarticular region was narrowed to a moderate degree. ASSESSMENT AND PLAN: At this point, my recommendation is that he have a 2-level decompression on the right at L4-L5 and L5-S1. Hopefully, this will help with his back and right hip pain. I did discuss the possibility that it would be of no help or that he could possibly be worsened by lumbar surgery. I did discuss the risks and benefits of surgery and the expected postoperative course. He understands and would like to proceed. We are going to make the arrangements. SAUL DR: Rakesh TID: [id number]
[2020-11-11 15:42] LABS: BASO % 1 % (0-3); EOS % 1 % (0-3); HEMATOCRIT 44.8 % (39.0-53.0); HEMOGLOBIN 15.7 g/dL (13.0-17.5); LYMPH # 1.4 x10^3/uL (1.0-4.8); LYMPH % 19 % (24-48); MEAN CORPUSCULAR HEMOGLOBIN 31 pg (25-35); MEAN CORPUSCULAR HGB CONC 35 g/dL (31-37); MEAN CORPUSCULAR VOLUME 87 fL (79-100); MONO # 0.8 x10^3/uL (0.0-1.1); MONO % 12 % (0-9); NEUT # 4.9 x10^3/uL (1.8-7.7); NEUT % 68 % (31-73); PLATELET COUNT 215 x10^3/uL (140-400); RED BLOOD COUNT 5.14 x10^6/uL (4.30-5.70); WHITE BLOOD COUNT 7.2 x10^3/uL (4.0-11.0)
[2020-11-11 16:01] LABS: ALBUMIN 3.8 g/dL (3.4-5.0); ALBUMIN/GLOBULIN RATIO 1.2 (1.0-1.7); CALCIUM 8.4 mg/dL (8.5-10.1); GFR 74.1; POTASSIUM 3.7 mmol/L (3.5-5.1); TOTAL BILIRUBIN 0.5 mg/dL (0.2-1.0); TOTAL PROTEIN 6.9 g/dL (6.4-8.2)
== END ==
LOC: SURGPAT 15:02
PROVIDERS: ATTEND Neurological Surgery
DX: Z01.818 Encounter for other preprocedural examination (principal); M48.062 Spinal stenosis, lumbar region with neurogenic claudication; M54.17 Radiculopathy, lumbosacral region
CPT/HCPCS: 36415; 80053; 85025; 87641

== ENCOUNTER 2020-11-14 07:14 | Day surgery (SDC) | payer MEDICARE ==
[2020-09-18 14:54] VITALS: BP 124/86
--- NOTE | 2020-11-11 13:01 | PREOP HP ---
DATE OF SERVICE: 11/14/2020 HISTORY OF PRESENT ILLNESS: The patient is a pleasant 70-year-old who is having difficulty with low back pain and pain that radiates to his right hip. He has been carefully evaluated by Orthopedics and felt to have no problems with the hip. He says his back and hip pain occurs when he stands and walks. If he sits for a short time, there is some relief. Epidural steroid injections helped him in the past. A right hip injection was performed and was of no benefit. The problem has been present for years and has slowly worsened. He is taking Tylenol. A steroid pack/Medrol Dosepak did help him some. CURRENT MEDICATIONS: Ambien, Tylenol. PAST MEDICAL HISTORY: Kidney stones. FAMILY HISTORY: Alzheimer disease, diabetes. SOCIAL HISTORY: Retired, , nonsmoker. Drinks alcohol 1-2 times a week. REVIEW OF SYSTEMS: A 10-point review of systems was performed and is noncontributory except that mentioned above. PHYSICAL EXAMINATION: GENERAL: Alert, pleasant, and in no acute distress. HEENT: Head is normocephalic, atraumatic. SKIN: Warm and dry. MUSCULOSKELETAL: Lumbar paraspinal muscle bulk is normal, restricted range of motion of the lumbar spine, [id number] tenderness of the lower lumbar spine with palpation, normal range of motion of the lower extremities bilaterally. No pain with internal and external rotation of the hip. EXTREMITIES: No clubbing, cyanosis or edema. NEUROLOGIC: Alert and oriented x 3. Strength is 5/5 in the lower extremities, sensory was intact to light touch in the lower extremities. Reflexes were trace to 1+ and symmetric in the lower extremities bilaterally, negative straight leg raising bilaterally, normal gait. IMAGING DATA: I reviewed his lumbar MRI scan. On that study, I felt there was a moderate amount of central canal stenosis and severe right lateral recess stenosis at L4-L5. At L5-S1, there was significant canal narrowing and I did feel that the subarticular region was narrowed to a moderate degree. ASSESSMENT AND PLAN: At this point, my recommendation is that he have a 2-level decompression on the right at L4-L5 and L5-S1. Hopefully, this will help with his back and right hip pain. I did discuss the possibility that it would be of no help or that he could possibly be worsened by lumbar surgery. I did discuss the risks and benefits of surgery and the expected postoperative course. He understands and would like to proceed. We are going to make the arrangements. SAUL DR: Rakesh TID: [id number] MTDPhilomena
[2020-11-11 15:37] VITALS: BP 138/74
[~2020-11-14] VITALS: Ht 182.9 cm; Wt 97.1 kg
[~2020-11-14 07:14] MED LIST changes: +BUPIVACAINE-EPI 0.5%-1:200000 MPF 30 ML VIAL. ONE; +DEXAMETHASONE SOD PHOS 4 MG/ML VIAL ONE; -DOCU-153 PO; +GELATIN SPONGE SIZE 100. ONE; -HYDR-2761 PO; +HYDROmorphone 2 MG/ML VIAL IVP PRN; +KETOROLAC 60 MG/2 ML VIAL. ONE; +LIDOCAINE 2% PF 5 ML VIAL. ONE; -METH-562 PO; +MORPHINE SULFATE 2 MG/ML VIAL. IVP PRN; +ONDANSETRON PF 4 MG/2 ML VIAL. ONE; +PROCHLORPERAZINE 10 MG/2 ML VIAL. IVP PRN; +PROPOFOL 10 MG/ML (20ML) VIAL. IV ONE; +ROCURONIUM 50 MG/5 ML VIAL. ONE; +THROMBIN TOPICAL 20,000 UNIT SPRAY.SYRN KIT TP ONE; +fentaNYL PF VIAL 100 MCG/2 ML VIAL IVP PRN
[2020-11-14 07:46] VITALS: BP 130/77
[2020-11-14] MEDS: IV RINGERS,LACTATED 1000ML 1,000 ML IV SCH ×2 (07:54→12:07)
[2020-11-14] MEDS ORDERED: PROPOFOL 50 ML IV ONE ×2 (07:57→10:10)
[2020-11-14] MEDS ORDERED: REMIFENTANIL 2 MG VIAL. IV ONE (07:57)
[2020-11-14] MEDS ORDERED: fentaNYL PF VIAL 100 MCG/2 ML VIAL ONE (08:19)
[2020-11-14] MEDS ORDERED: MIDAZOLAM HCL/PF 2 MG/2 ML VIAL. ONE (08:26)
[2020-11-14] MEDS ORDERED: DESFLURANE > 120 MINUTES IH ONE (09:33)
[2020-11-14] MEDS ORDERED: NEOSTIGMINE METHYLSULFATE 5 MG/5 ML SYRINGE. ONE (10:56)
[2020-11-14] MEDS ORDERED: 0.9 % SODIUM CHLORIDE 10 ML DISP.SYRIN. IV PRN (11:30)
[2020-11-14] MEDS ORDERED: fentaNYL PF VIAL 100 MCG/2 ML VIAL IVP PRN (11:30)
[2020-11-14] MEDS ORDERED: HYDROcodone/APAP 5/325MG 1 TAB TABLET PO PRN ×2 (11:30)
[2020-11-14] MEDS ORDERED: CALCIUM CARBONATE 500 MG TAB.CHEW PO PRN (11:30)
[2020-11-14] MEDS ORDERED: MAGNESIUM HYDROXIDE 2,400 MG/30 ML ORAL.SUSP. PO PRN (11:30)
[2020-11-14] MEDS ORDERED: NALOXONE 0.4 MG/ML VIAL. IV PRN (11:30)
[2020-11-14] MEDS ORDERED: ONDANSETRON PF 4 MG/2 ML VIAL. IVP PRN (11:30)
[2020-11-14] MEDS ORDERED: ACETAMINOPHEN 325 MG TABLET. PO PRN (11:30)
[2020-11-14] MEDS ORDERED: MAG HYDROX/ALUMINUM HYD/SIMETH 30 ML ORAL.SUSP PO PRN (11:30)
[2020-11-14] MEDS ORDERED: diphenhydrAMINE HCL 25 MG CAPSULE PO PRN (11:30)
[2020-11-14] MEDS ORDERED: METHOCARBAMOL 750 MG TABLET PO PRN (11:30)
[2020-11-14] MEDS ORDERED: HYDROcodone/APAP 5/325MG 1 TAB TABLET PO ONE (12:00)
[2020-11-14] MEDS ORDERED: DOCU-153 PO (12:02)
[2020-11-14] MEDS ORDERED: METH-562 PO (12:02)
[2020-11-14] MEDS ORDERED: HYDR-2761 PO (12:02)
[2020-11-14] MEDS ORDERED: TETRACAINE 0.5% OPHTH SOLUTION 4ML BOTTLE. OD ONE (12:15)
[2020-11-14 12:30] VITALS: BP 122/79
[2020-11-14] MEDS ORDERED: POTASSIUM CL 20MEQ D5-0.45NACL 1,000 ML IV SCH (14:00)
[2020-11-14] MEDS ORDERED: ZOLPIDEM 5 MG TABLET. PO SCH (21:00)
[2020-11-14] MEDS ORDERED: DOCUSATE SODIUM 100 MG CAPSULE. PO SCH (21:00)
--- NOTE | 2020-11-16 16:03 | OP ---
DATE OF SURGERY: 11/14/2020 PREOPERATIVE DIAGNOSES: Lumbar spinal stenosis and lateral recess stenosis at L4-L5; lateral recess stenosis, L5-S1, right with right lumbar radiculopathy. OPERATION PERFORMED: Hemilaminotomy with decompression of dura and nerve root, right L4-L5, and hemilaminotomy with decompression of dura and nerve root, right L5-S1. OPERATION DONE: With EMG monitoring, SSEP monitoring, fluoroscopy, microscopic dissection. SPECIMEN: Decompression. SURGEON: Mike Salter M.D. CLAIM MANAGER: LEYDA Khanna, assisted with the surgery. OPERATIVE INDICATIONS: The patient is a pleasant 70-year-old who developed intractable back and right hip pain, which failed conservative measures. Epidural steroid injections had helped him with this problem in the past, but with no longer of benefit. The problem was present for years and slowly worsening. I have recommended lumbar microsurgery after evaluating the patient and reviewing his imaging studies. He understood the surgery and the risks. He wished to go ahead. DESCRIPTION OF PROCEDURE: Under general endotracheal anesthesia, the patient was positioned prone on the Shakeel table. Lumbar region prepped and draped in a standard fashion. HONEY hose and AV impulse boots were applied for DVT prophylaxis. The microscope was draped, fluoroscopy was draped and brought into the field. Monitoring was established. Ancef 2 grams given less than 1 hour prior to initiation of the surgery. Using fluoroscopic guidance, a midline incision was made from L4 through S1. I dissected down through skin and subcutaneous tissue, placed a micro disc retractor centered at L4-L5 and brought in the microscope confirming my position fluoroscopically. I brought in the high speed air drill and burred a generous hemilaminotomy and then drilled and thinned a partial foraminotomy. I grasped and peeled away the ligamentum flavum, exposing the dura. At the level of the disc, there was very thick facet as well as ligament and the ligament had undergone some cystic degenerative changes which were markedly compressing the root. I gently trimmed this material away and peeled this pressure back off of the root. The disc was firm, no discectomy was warranted. I did perform a partial foraminotomy and carried my bone work to the medial edge of the pedicle, and then along with the partial foraminotomy and fully decompressed the region. At this point, I felt that this level was very well decompressed. I then went down and performed the identical operation at L5-S1. At this level, there was less evidence of central canal stenosis, but laterally, there was significant narrowing and pressure on the S1 root and I did relieve this with a wide decompression and a partial foraminotomy. Following this, then I irrigated copiously and assured myself of excellent hemostasis. I did use a bipolar cautery judiciously as well as bone wax where necessary during the operation. After irrigation, I removed the retractor and obtained hemostasis in the muscle and then I closed the wound in layers with absorbable suture and the skin was closed with 4-0 subcuticular stitch. I felt the surgery went very well. KANU DR: Merlyn TID: [id number] MTDPhilomena
--- NOTE | 2020-11-19 09:09 | PATHOLOGY ---
[facility] Accession Number: [id number] . 01 Material submitted: . vertebral column - LUMBAR DECOMPRESSION . 01 Clinical history: . HERNIATED DISC LUMBAR LUMBAR STENOSIS,RADICULOPATHY LUMBAR MICRODECOMPRESSION L4-5,L5-1 . 02 Diagnosis: Segments of fibrocartilaginous, adipose, and skeletal muscle tissue and bone, lumbar decompression: - Degenerative changes of fibrocartilaginous tissue. ([facility]:jemma; 11/18/2020) [facility] 11/19/2020 0809 Local . 02 Comment: There is no evidence of an acute inflammatory process or malignancy. ([facility]:jemma; 11/18/2020) . 02 Electronically signed: . Jamie Wilcox MD, Pathologist NPI- [id number] . 01 Gross description: . Received in formalin labeled "Agusto Beard, lumbar decompression" are multiple fragments of valenzuela-white rubbery and gritty soft tissue and bone measuring in aggregate 4.8 x 3.7 x 1.0 cm. Yard Stocker tissue is submitted in cassette A1 following decalcification. ([facility] [place]; 11/17/2020) [facility] 11/18/2020 1840 Local . 02 Pathologist provided ICD-10: M51.36 . 02 CPT . 275049, [id number] Specimen Comment: A courtesy copy of this report has been sent to [phone], [phone] Specimen Comment: [id number] Specimen Comment: Report sent to / DR JOSEPH Performed at: [address], [place], [place] [id number] MD Reggie Orellana MD Phone: [phone] Performed at: 02 [facility] [address] [place], [place] [id number] MD Jamie Wilcox MD Phone: [phone]
== END 2020-11-14 13:40 | disposition home or self-care (01) ==
LOC: SURG 07:14
PROVIDERS: ATTEND Neurological Surgery
DX: M48.061 Spinal stenosis, lumbar region without neurogenic claudication (principal); M54.17 Radiculopathy, lumbosacral region; Z79.899 Other long term (current) drug therapy; Z72.89 Other problems related to lifestyle; Z98.890 Other specified postprocedural states
CPT/HCPCS: 63047; 63048; 88304; 88311; 97161; A4364; A4930; A6254; A6258; J0690; J1100; J1885; J2250; J2405; J2704; J2710; J3010; J3480; 76000; A4657